=== PATIENT | male | born 1945 | race Caucasian/White ===

== ENCOUNTER 2016-05-03 13:14 | Emergency (ER) | payer MEDICARE, BC ==
[~2016-05-03] VITALS: Ht 182.9 cm; Wt 140.0 kg
[2016-05-03 13:18] VITALS: BP 189/80; PULSE 67; RESP 18; TEMP 98.2; O2SAT 97
--- NOTE | 2016-05-03 13:27 | PD ---
HPI Chief Complaint: Laceration/Skin Injury Time Seen by Provider: 13:19 Travel History International Travel<30 days: No Contact w/Intl Traveler<30days: No Traveled to known affect area: No History of Present Illness HPI Patient 70-year-old male who takes an aspirin daily no other anticoagulants who slipped walking down steps that his doc and skin his right villar. Patient is complaining of laceration to his right villar as well as multiple avulsions. He was ambulatory on scene denies any other pain denies any headache chest pain abdominal pain. Last tetanus was inside of 5 years. PFSH Past Medical History Hx Anticoagulant Therapy: Yes (81mg asa) Cardiovascular Problems: Yes (htn) Diabetes: Yes ?: Not Social History Tobacco Use: No Allergies-Medications (Allergen,Severity, Reaction): Coded Allergies: No Known Allergies (Unverified , 05/03/16) Reported Meds & Prescriptions Reported Meds & Active Scripts Active Reported Aspir-81 (Aspirin) 81 Mg Tabdr Lovastatin 20 Mg Tab 20 Mg PO DAILY Glipizide ER (Glipizide) 2.5 Mg Everett 2.5 Mg PO DAILY Take with breakfast or first main meal of the day Gabapentin 600 Mg Tab 600 Mg PO BID Gabapentin 300 Mg Cap 300 Mg PO TID Carvedilol 6.25 Mg Tab 6.25 Mg PO BID Lisinopril 40 Mg Tab 40 Mg PO DAILY Onglyza (Saxagliptin) 5 Mg Tab 5 Mg PO DAILY Allopurinol 100 Mg Tab 100 Mg PO DAILY Amlodipine (Amlodipine Besylate) 2.5 Mg Tab 2.5 Mg PO DAILY Cranberry (Cranberry (Vaccinium Macrocarpon)) 500 Mg Cap [id number]-[id number] (Methylcobalamin) 1 Mg Chew 1 Mg CHEW DAILY Review of Systems Except as stated in HPI: all other systems reviewed are Neg Physical Exam Narrative GENERAL: Well-developed well-nourished no apparent distress, quite pleasant. SKIN: Warm and dry. Patient has a approximately 7 cm laceration to the left villar running transversely, there is multiple skin avulsions as well. Bleeding is controlled. Pulses motor and sensory intact distally. No bone exposure. HEAD: Atraumatic. Normocephalic. EYES: Pupils equal and round. No scleral icterus. No injection or drainage. ENT: No nasal bleeding or discharge. Mucous membranes pink and moist. NECK: Trachea midline. No JVD. CARDIOVASCULAR: Regular rate and rhythm. No murmur appreciated. RESPIRATORY: No accessory muscle use. Clear to auscultation. Breath sounds equal bilaterally. GASTROINTESTINAL: Abdomen soft, non-tender, nondistended. Hepatic and splenic margins not palpable. MUSCULOSKELETAL: No obvious deformities. No clubbing. No cyanosis. No edema. NEUROLOGICAL: Awake and alert. No obvious cranial nerve deficits. Motor grossly within normal limits. Normal speech. PSYCHIATRIC: Appropriate mood and affect; insight and judgment normal. Data Data Last Documented VS Vital Signs Date Time Temp Pulse Resp B/P Pulse Ox O2 Delivery O2 Flow Rate FiO2 05/03/16 14:31 84 17 05/03/16 13:18 98.2 189/80 97 Orders Lidocai-Epi 1%-1:100,000 Inj (Xylocaine- (05/03/16 13:30) Tibia/Fibula (Ap/Lat) (05/03/16 ) MDM Medical Decision Making Medical Screen Exam Complete: Yes Emergency Medical Condition: Yes Differential Diagnosis Laceration, fracture, retained foreign body. Narrative Course Patient roomed in the emergency department, patient states tetanus is up-to- date. X-rays obtained and negative for fracture and retained foreign body. His wound was closed with absorbable suture. Patient is in good spirits and is quite friendly. No other injuries. He is stable for discharge. Discussed wound care at home and returned ED criteria. Diagnosis Primary Impression: Laceration Disposition: 01 DISCHARGE HOME Condition: Stable Jamie Morales MD May 03, 2016 13:27
[2016-05-03] MEDS ORDERED: LIDOCAINE 1%/EPINEPHrine 1:100,000 SOLN 20 ML VIAL INFIL ONE (13:30)
[2016-05-03] MEDS ORDERED: LOVA20TA PO (13:40)
[2016-05-03] MEDS ORDERED: GLIP1TAB60 PO (13:40)
[2016-05-03] MEDS ORDERED: LISI40TA PO (13:40)
[2016-05-03] MEDS ORDERED: AMLO2.5T PO (13:40)
[2016-05-03] MEDS ORDERED: CRAN500C2 (13:40)
[2016-05-03] MEDS ORDERED: ALLO100T PO (13:40)
[2016-05-03] MEDS ORDERED: GABA300C5 PO (13:40)
[2016-05-03] MEDS ORDERED: ONGL5TAB PO (13:40)
[2016-05-03] MEDS ORDERED: B12-1CHW CHEW (13:40)
[2016-05-03] MEDS ORDERED: CARV6.252 PO (13:40)
[2016-05-03] MEDS ORDERED: ASPI81TA81 (13:40)
[2016-05-03] MEDS ORDERED: GABA600T PO (13:40)
--- NOTE | 2016-05-03 14:13 | RADRPT ---
EXAM DATE/TIME: 05/03/2016 14:00 [facility] COMPARISON: No previous studies available for comparison. INDICATIONS : Fall MEDICAL HISTORY : None. SURGICAL HISTORY : None. ENCOUNTER: Initial ACUITY: 1 day PAIN SCORE: 10/10 LOCATION: Right lateral lower leg FINDINGS: Large soft tissue defect can be seen anterolaterally of the mid to distal leg. I don't see a radiopaq ue foreign body. The right tibia and fibula are intact. CONCLUSION: Soft tissue injury without fracture. Mitesh King MD on May 03, 2016 at 14:10 Board Certified Radiologist. This report was verified electronically.
--- NOTE | 2016-05-03 14:47 | PD ---
Physical Exam Narrative I was asked by Dr. Morales to repair patient's laceration. Please see his documentation for full H&P. Data Data Last Documented VS Vital Signs Date Time Temp Pulse Resp B/P Pulse Ox O2 Delivery O2 Flow Rate FiO2 05/03/16 14:31 84 17 05/03/16 13:18 98.2 189/80 97 Orders Lidocai-Epi 1%-1:100,000 Inj (Xylocaine- (05/03/16 13:30) Tibia/Fibula (Ap/Lat) (05/03/16 ) MDM Supervised Visit with MATTI: No Procedures Procedure Narrative LACERATION REPAIR LOCATION: Right anterior distal leg LENGTH: Proximate 10 cm in total length NUMBER OF STITCHES/LUIS: 8 total combination of simple mattress and simple interrupted REPAIR: Verbal consent was obtained. The area of the laceration was cleaned and prepped. The laceration was infiltrated with lidocaine with epi. The wound was copiously irrigated and explored without evidence of foreign body, bony involvement, ligament injury, tendon injury, or neurovascular injury. The wound was closed using 3-0 Vicryl. This was a single layer repair. A sterile dressing was applied by nurse. The patient was advised to keep the affected area as clean and dry as possible using soap and water. There were no complications. Patient tolerated the procedure well. Diagnosis Primary Impression: Laceration Patient Instructions: Care For Your Absorbable Stitches (ED), General Instructions, Laceration (ED) Departure Forms: Tests/Procedures Additional Instruction: Return to the emergency department in 12-14 days for suture removal. It is any redness or discharge from the wound or use start running fevers return to emergency department sooner for evaluation. Disposition: 01 DISCHARGE HOME Condition: Stable Nils Carr May 03, 2016 14:47
== END 2016-05-03 15:26 | disposition home or self-care (01) ==
LOC: NEPA 13:14
DX: S81.811A Laceration without foreign body, right lower leg, initial encounter (principal); W10.9XXA Fall (on) (from) unspecified stairs and steps, initial encounter; Y93.01 Activity, walking, marching and hiking; Y92.89 Other specified places as the place of occurrence of the external cause
CPT/HCPCS: 12004; 73590

== ENCOUNTER 2016-05-09 12:28 | Emergency (ER) | payer MEDICARE, BC ==
[~2016-05-09] VITALS: Ht 182.9 cm; Wt 153.5 kg
[~2016-05-09 12:28] MED LIST: ALLO100T PO; AMLO2.5T PO; ASPI81TA81; B12-1CHW CHEW; CARV6.252 PO; CRAN500C2; GABA300C5 PO; GABA600T PO; GLIP1TAB60 PO; LISI40TA PO; LOVA20TA PO; ONGL5TAB PO
[2016-05-09 12:33] VITALS: BP 156/70; PULSE 77; RESP 20; TEMP 97.8; O2SAT 97
--- NOTE | 2016-05-09 12:41 | PD ---
HPI . wound check Chief Complaint: Wound/Suture/Staple Re-Check Time Seen by Provider: 12:46 Travel History International Travel<30 days: No Contact w/Intl Traveler<30days: No Traveled to known affect area: No History of Present Illness HPI 70-year-old male here for wound check. Patient sustained a laceration on May 03 and had a repair done. Is concerned about some redness on his leg. His voices concern that he was not placed on antibiotics and he is a type II diabetic. They're concerned about poor healing. Denies any fever or chills. Denies any purulent matter from the wound. PFSH Past Medical History Hx Anticoagulant Therapy: Yes (BABY ASA DAILY) Arthritis: Yes Cardiovascular Problems: Yes (HTN) Diabetes: Yes (TYPE 2) Diminished Hearing: No Gout: Yes Hypertension: Yes Sleep Apnea: Yes Past Surgical History Tonsillectomy: Yes Social History Alcohol Use: Yes (daily 4 martini's per day) Tobacco Use: No Substance Use: No Allergies-Medications (Allergen,Severity, Reaction): Coded Allergies: No Known Allergies (Unverified , 05/09/16) Reported Meds & Prescriptions Reported Meds & Active Scripts Active Bactrim DS (Sulfamethoxazole-Trimethoprim) 800-160 Mg Tab 1 Tab PO BID Reported Aspir-81 (Aspirin) 81 Mg Tabdr Lovastatin 20 Mg Tab 20 Mg PO DAILY Glipizide ER (Glipizide) 2.5 Mg Everett 2.5 Mg PO DAILY Take with breakfast or first main meal of the day Gabapentin 600 Mg Tab 600 Mg PO BID Gabapentin 300 Mg Cap 300 Mg PO TID Carvedilol 6.25 Mg Tab 6.25 Mg PO BID Lisinopril 40 Mg Tab 40 Mg PO DAILY Onglyza (Saxagliptin) 5 Mg Tab 5 Mg PO DAILY Allopurinol 100 Mg Tab 100 Mg PO DAILY Amlodipine (Amlodipine Besylate) 2.5 Mg Tab 2.5 Mg PO DAILY Cranberry (Cranberry (Vaccinium Macrocarpon)) 500 Mg Cap [id number] (Methylcobalamin) 1 Mg Chew 1 Mg CHEW DAILY Review of Systems General / Constitutional: No: Fever Eyes: No: Visual changes HENT: No: Headaches Cardiovascular: No: Chest Pain or Discomfort Respiratory: No: Shortness of Breath Gastrointestinal: No: Abdominal Pain Genitourinary: No: Dysuria Musculoskeletal: No: Pain Skin: Positive Other (healing wound), No Rash Neurologic: No: Weakness Psychiatric: No: Depression Endocrine: No: Polydipsia Hematologic/Lymphatic: No: Easy Bruising Physical Exam Narrative GENERAL: AAO x 3, no acute distress, Well-nourished, well-developed patient. SKIN: Warm and dry. No visible rashes. Right leg with large healing wound, larger wound on lower extremity: sutures without any evidence of infection, there is some surrounding erythema and mild warmth, no purulence. skin tears on knee healing with granulation tissue present HEAD: Normocephalic and atraumatic. EYES: No scleral icterus. No injection or drainage. ENT: No nasal drainage noted. Mucous membranes pink. Airway patent. NECK: Supple, trachea midline. No JVD. CARDIOVASCULAR: Regular rate and rhythm without murmurs, gallops, or rubs. RESPIRATORY: Breath sounds equal bilaterally. No accessory muscle use. No rhonchi or rales. GASTROINTESTINAL: Abdomen soft, non-tender, nondistended. EXTREMITIES: No cyanosis or edema. skin tear: healing, some surrounding erythema and mild warmth. largest and most distal 13 x 7 cm, with healing tissue , some surrounding erythema, heading proximal another wound: 5 x 4 cm, further proximal there two smaller wounds 4x 3 cm, healing with granulation tissue present. BACK: Nontender without obvious deformity. No CVA tenderness. PSYCH: AAO x 3, normal affect. Data Data Last Documented VS Vital Signs Date Time Temp Pulse Resp B/P Pulse Ox O2 Delivery O2 Flow Rate FiO2 05/09/16 12:33 97.8 77 20 156/70 97 Orders Wound Care (05/09/16 12:55) [facility] Medical Decision Making Medical Screen Exam Complete: Yes Emergency Medical Condition: Yes Medical Record Reviewed: Yes Differential Diagnosis healing wound, cellulitis, lymphangitis, stasis dermatitis Narrative Course 70-year-old male here for wound check. Patient sustained a laceration on May 03 and had a repair done. Is concerned about some redness on his leg. His voices concern that he was not placed on antibiotics and he is a type II diabetic. They're concerned about poor healing. Denies any fever or chills. Denies any purulent matter from the wound. Patient seen and examined. Wound assessed. There is some small area of erythema and warmth. Discussed with patient and . They are requesting antibiotics and somewhat upset they did not initially receive them. We'll cover with Bactrim. Patient verbalized understanding of instructions, questions were answered, and thanked me for their care. I advised them if their condition worsens, please return to the nearest emergency room for further care. Diagnosis Primary Impression: Healing wound Additional Impression: Cellulitis of leg without foot Patient Instructions: Acute Wound Care (ED), General Instructions Additional Instructions: Please return to emergency department if your symptoms return or worsen. Follow up with your primary care provider. Take medications as prescribed. Perform dressing changes at least twice a day. Watch for signs of infection such as redness, warmth, purulent drainage or streaking. Med/Other Pt SpecificInfo: Prescription(s) given Scripts Sulfamethoxazole-Trimethoprim (Bactrim DS)800-160 Mg Tab1 Tab PO BID #20 TAB Prov:Stanford Woods MD 05/09/16 Disposition: 01 DISCHARGE HOME Condition: Stable Ene Cole May 09, 2016 12:41
[2016-05-09] MEDS ORDERED: BACT800T5 PO (12:55)
== END 2016-05-09 13:17 | disposition home or self-care (01) ==
LOC: PHEFT 12:28
DX: L03.115 Cellulitis of right lower limb (principal); S81.801D Unspecified open wound, right lower leg, subsequent encounter; E11.9 Type 2 diabetes mellitus without complications; I10 Essential (primary) hypertension; Z79.899 Other long term (current) drug therapy
CPT/HCPCS: 99282